=== PATIENT | male | born 1945 | race Caucasian/White ===

== ENCOUNTER 2020-03-01 17:01 | Inpatient (IN) | payer MEDICARE ==
[~2020-03-01] VITALS: Ht 177.8 cm; Wt 87.7 kg
[2020-03-01 18:27] LABS: BASO % 0.6 % (0.0-2.0); EOS # 0.1 (0.0-0.7); EOS % 1.7 % (0-4.0); GRAN # 2.6 (1.4-6.5); GRAN % 73.9 % (42.2-75.2); LYMPH # 0.4 (1.2-3.4); LYMPH % 11.6 % (20.0-51.0); MEAN CELL VOLUME 96 fl (80.0-100.0); MEAN CORPUSCULAR HGB CONC 31 g/dl (33.0-37.0); MEAN PLATELET VOLUME 10.2 fl (7.4-10.4); MONO # 0.4 (0.1-0.6); MONO % 11.6 % (1.7-9.3); PLATELET COUNT 162 K/mm3 (130-400); RED BLOOD COUNT 2.49 M/mm3 (4.20-5.60); REDCELL DISTRIBUTION WIDTH-CV 16.3 % (11.5-14.5)
[2020-03-01 18:31] LABS: HEMATOCRIT 23.8 % (42.0-52.0); HEMOGLOBIN 7.4 g/dl (13.5-18.0); MEAN CORPUSCULAR HEMOGLOBIN 30 pg (27.0-31.0)
[2020-03-01 18:35] LABS: INR 1.1 (0.8-3.0); PROTHROMBIN TIME 12.6 SECONDS (9.7-12.8)
[2020-03-01 18:40] LABS: ALBUMIN 3.3 gm/dL (3.5-5.0); BILIRUBIN,TOTAL 1.1 mg/dL (0.0-1.0); C-REACTIVE PROTEIN 4.2 mg/dL (0.0-0.9); CALCIUM 8.3 mg/dL (8.4-10.2); CREATININE, serum 3.72 (0.66-1.25); POTASSIUM 3.6 mmol/L (3.4-5.0); TOTAL PROTEIN 6.3 gm/dL (6.4-8.2)
[2020-03-01 18:49] LABS: TROPONIN-I 0.029 ng/mL (0.000-0.035)
[2020-03-01 21:04] LABS: IRON,SERUM 53 ug/dL (35-150)
[2020-03-01 21:13] LABS: TOTAL IRON BINDING CAPACITY 211 ug/dL (261-462)
[2020-03-01] MEDS ORDERED: NORVASC 10MG10 MG PO (21:16)
[2020-03-01] MEDS ORDERED: ZYLOPRIM 100MG100 MG PO (21:16)
[2020-03-01] MEDS ORDERED: ASPIRIN 81M81 MG/TA2 PO (21:16)
[2020-03-01] MEDS ORDERED: LIPITOR 40MG TA40 MG PO (21:17)
[2020-03-01] MEDS ORDERED: PLETAL 100MG T100 MG PO (21:18)
[2020-03-01] MEDS ORDERED: COREG 25MG25 MG/TAB PO (21:18)
[2020-03-01] MEDS ORDERED: COSOPT 2%-0.5%10 ML OU (21:19)
[2020-03-01] MEDS ORDERED: XALATAN EYE DROPS OD (21:20)
[2020-03-01] MEDS ORDERED: ONE-A-DAY ESSE1 EACH PO (21:21)
[2020-03-01] MEDS ORDERED: PREDNISONE 2.52.5 MG PO (21:22)
[2020-03-01] MEDS ORDERED: PROGRAF 0.5MG0.5 MG PO (21:23)
[2020-03-01] MEDS ORDERED: PROTONIX 40MG T40 MG PO (21:24)
[2020-03-01] MEDS ORDERED: FLOMAX 0.40.4 MG/CAP PO (21:24)
[2020-03-01 23:37] VITALS: BP 123/48; PULSE 55; PULSE 70; TEMP 97.4
[2020-03-02] VITALS (13 sets, daily range): BP systolic 116–130; BP diastolic 36–63; PULSE 53–84; TEMP 97.8–98.5
--- NOTE | 2020-03-02 00:50 | NUR ---
Admission B completed and documented. Pt resting in bed at this time. Pt alert and oriented x4. Denies pain. INT to right forearm CDI. Multiple skin issues documented. Generalized red/purple bruising to chest along with an abraision to his mid chest that is covered with a border foam which pt states was from his previous hospital stay in [facility]. Scattered tears/abraisions to left forearm. Blister to right forearm. Scattered bruising left flank and bilateral legs. Bilateral healing knee abraisions from a fall that pt states was about a week ago. Redness and edema to BLE. Fistula to left forearm with audible bruit and palpable thrill. Pt denies any other needs at this time. Call light within reach. Bed alarm on. Will conintue to monitor.
--- NOTE | 2020-03-02 06:14 | NUR ---
Pt rested well on CPAP. No complaints of pain. Denies any needs at this time. Call light within reach
[2020-03-02 08:19] LABS: BASO % 0.3 % (0.0-2.0); EOS # 0.1 (0.0-0.7); EOS % 1.6 % (0-4.0); GRAN # 2.8 (1.4-6.5); GRAN % 74.4 % (42.2-75.2); LYMPH # 0.5 (1.2-3.4); LYMPH % 13.7 % (20.0-51.0); MEAN CELL VOLUME 97 fl (80.0-100.0); MEAN CORPUSCULAR HGB CONC 31 g/dl (33.0-37.0); MEAN PLATELET VOLUME 10.8 fl (7.4-10.4); MONO # 0.4 (0.1-0.6); MONO % 9.7 % (1.7-9.3); PLATELET COUNT 151 K/mm3 (130-400); RED BLOOD COUNT 2.16 M/mm3 (4.20-5.60); REDCELL DISTRIBUTION WIDTH-CV 16.6 % (11.5-14.5)
[2020-03-02 08:21] LABS: HEMOGLOBIN 6.5 g/dl (13.5-18.0); MEAN CORPUSCULAR HEMOGLOBIN 30 pg (27.0-31.0)
[2020-03-02 08:28] LABS: ALBUMIN 2.8 gm/dL (3.5-5.0); CREATININE, serum 3.67 (0.66-1.25); PHOSPHOROUS 3.4 mg/dL (2.5-4.5); POTASSIUM 3.4 mmol/L (3.4-5.0)
--- NOTE | 2020-03-02 12:53 | NUR ---
SEE MEREOLEKSANDR FOR ALL MEDICATION ADMINISTRATION TIMES, INTRA AND POST SEDATION ASSESSMENTS
--- NOTE | 2020-03-02 12:55 | NUR ---
First visit from the equip maint eng. No needs right now.
--- NOTE | 2020-03-02 13:47 | NUR ---
Pt assessment completed and charted. medications administered per SEP. Pt laying in bed, denies pain, A&O. Pt has RFA INT IV that flushes w/o difficulty. LFA fistula, bruit and thrill present. Bilateral forearm bruising noted, per pt has been present for years. Bruising to mid chest and dressing in place from sternal rub in prior hospital stay elsewhere. BLE edema and redness noted, per pt isn't "as bad as it has been". pt on room air, breathing even and unlabored, denies SOB. No further needs expressed. pt signed consent for fistulogram. procedure completed, pt back to room , A&O. On post ops. Requesting snack, blanket and water, provided.
--- NOTE | 2020-03-02 16:21 | NUR ---
SW met with the patient to discuss discharge plan. The patient lives in [place] with his , Brooke (ph#[phone]). He reports independence with ADLs and has a rolaider and CPAP. The patient receives primary care from Dr. Rojo at the [facility] and from Dr. Moses in [place]. He receives his long-term medications through the mail from the [place] and anything short-term from [facility] in [place]. He reports no difficulties obtaining his meds. The patient does not have advanced directives in EMR, but he states that he does have a DPOA-HC completed and that his is his DPOA-HC. The patient plans to return home with his upon discharge. SW to continue to follow as needed.
--- NOTE | 2020-03-02 19:13 | NUR ---
Pt to have blood transfusion, 1 unit tonight and 1 unit tomorrow, verbal order from bedros placed. Verbal order for RIJ tunneled dialysis cath to be placed Saturday03/04/2020, consents signed. All questions answered. pt denies pain or needs throughout day. VSS. report given to LAZARO Beckford.
--- NOTE | 2020-03-02 19:41 | NUR ---
Report received from LAZARO Moreno. Pt resting in bed, denies needs at this time.
--- NOTE | 2020-03-02 21:25 | NUR ---
Assessment completed. Generalized bruising and skin tears noted over pt's entire body. Bilateral forearms bluish and scattered skin tears noted, pt reports this is baseline. BLE blue and bruised, 2+ pitting edema, pt reports this is also baseline. Middle upper chest covered with large bruise, dressing over skin tear, pt reports this occurred after sternal rub was done during a recent hospitalization. Various scattered bruising over pt's body, reports this is due to a recent fall prior to hospitalization. Fistula to left forearm with palpable thrill and audible bruit. INT to right forearm intact and flushes easily, drainage noted around dressing, dressing not changed due to high probability of skin tearing with removal. Will continue to monitor.
[2020-03-03] VITALS (13 sets, daily range): BP systolic 107–144; BP diastolic 24–57; PULSE 53–88; TEMP 98–98.6
--- NOTE | 2020-03-03 05:55 | NUR ---
Pt received 1 unit of PRBCs this shift. Tolerated well, vitals remained stable. Following blood transfusion, pt went to sleep. Wore own CPAP overnight.
[2020-03-03 07:42] LABS: BASO % 0.2 % (0.0-2.0); EOS % 0.6 % (0-4.0); GRAN # 3.6 (1.4-6.5); GRAN % 77.7 % (42.2-75.2); LYMPH # 0.5 (1.2-3.4); MEAN CELL VOLUME 95 fl (80.0-100.0); MEAN CORPUSCULAR HGB CONC 31 g/dl (33.0-37.0); MEAN PLATELET VOLUME 10.6 fl (7.4-10.4); MONO # 0.5 (0.1-0.6); MONO % 10.1 % (1.7-9.3); PLATELET COUNT 158 K/mm3 (130-400); RED BLOOD COUNT 2.55 M/mm3 (4.20-5.60); REDCELL DISTRIBUTION WIDTH-CV 17.3 % (11.5-14.5)
[2020-03-03 07:44] LABS: HEMATOCRIT 24.1 % (42.0-52.0); HEMOGLOBIN 7.5 g/dl (13.5-18.0); MEAN CORPUSCULAR HEMOGLOBIN 29 pg (27.0-31.0)
[2020-03-03 08:05] LABS: CALCIUM 8.2 mg/dL (8.4-10.2); CREATININE, serum 3.75 (0.66-1.25); PHOSPHOROUS 3.4 mg/dL (2.5-4.5); POTASSIUM 3.3 mmol/L (3.4-5.0)
--- NOTE | 2020-03-03 12:11 | NUR ---
BLOOD PRODUCT HAS BEEN STARTED ON THE PATIENT. PATIENT IS TOLERATING IT FINE AT THIS POINT. NO REACTIONS TO NOTE. INFUSION QAT 75 MLS
--- NOTE | 2020-03-03 15:30 | NUR ---
PATIENT BLOOD TRANSFUSION IS COMPLETED! PATIENT TOLERATED THE BLOOD TRANSFUSION WITHOUT ANY REACTIONS.
--- NOTE | 2020-03-03 18:25 | NUR ---
PATIENT GOT BLOOD TODAY AND TOLERATED IT VERY WELL. NO REACTIONS. , ABEL IS HERE TO VISIT THE PATIENT. PATIENT HAS BEEN ALERT AND ORIENTATED DURING THE DAY. PATIENT HAS MINIMAL URINE OUTPUT. IV IS NOW IN THE RIGHT UPPER ARM AND IS WORKING WELL. WILL REPORT OFF TO ANALYSIS REPORTING DEVELOPER.
--- NOTE | 2020-03-03 18:32 | NUR ---
Report received from LAZARO Estrella. Pt denies needs at this time.
--- NOTE | 2020-03-03 21:15 | NUR ---
Assessment completed. Scattered bruising and scabs over body, large bruise with skin tear to upper chest covered with dressing, bruising and abrasions to BUE and BLE. 2+ pitting edema noted to BLE with 1+ edema to LUE. Fistula to left forearm with palpable thrill and audible bruit, radial pulse strong. INT to right upper arm intact, flushes easily. Pt denies pain or other needs at this time.
[2020-03-04 03:51] VITALS: BP 104/38; PULSE 75; TEMP 98.3
--- NOTE | 2020-03-04 05:40 | NUR ---
Pt sleeping throughout shift, wearing CPAP from home. NPO since midnight. No complaints of pain or other concerns.
[2020-03-04 06:38] LABS: ALBUMIN 3.1 gm/dL (3.5-5.0); CALCIUM 8.1 mg/dL (8.4-10.2); CREATININE, serum 3.81 (0.66-1.25); PHOSPHOROUS 3.5 mg/dL (2.5-4.5); POTASSIUM 3.2 mmol/L (3.4-5.0)
[2020-03-04 06:40] LABS: BASO % 0.5 % (0.0-2.0); GRAN # 2.8 (1.4-6.5); GRAN % 73.8 % (42.2-75.2); LYMPH # 0.5 (1.2-3.4); LYMPH % 12.5 % (20.0-51.0); MEAN CELL VOLUME 93 fl (80.0-100.0); MEAN CORPUSCULAR HGB CONC 32 g/dl (33.0-37.0); MEAN PLATELET VOLUME 9.9 fl (7.4-10.4); MONO # 0.5 (0.1-0.6); MONO % 11.7 % (1.7-9.3); PLATELET COUNT 153 K/mm3 (130-400); REDCELL DISTRIBUTION WIDTH-CV 17.9 % (11.5-14.5)
[2020-03-04 06:43] LABS: HEMATOCRIT 25.2 % (42.0-52.0); HEMOGLOBIN 8.1 g/dl (13.5-18.0); MEAN CORPUSCULAR HEMOGLOBIN 30 pg (27.0-31.0)
[2020-03-04 08:48] VITALS: BP 135/39; PULSE 71; TEMP 98.7
--- NOTE | 2020-03-04 10:36 | NUR ---
PATIENT HAS LEFT FOR A PROCEDURE
--- NOTE | 2020-03-04 12:21 | NUR ---
PATIENT IS BACK TO THE FLOOR. PATIENT IS SLEEPY AT THIS TIME. RIGHT CHEST DIALYSIS CATHETER IS IN PLACE NOW WITH A WHITE BANDAGE OVER IT. VITALS ARE 18 RESPIRATORY RATE. 98% ON ROOM AIR. BLOOD PRESSURE IS 131/31. PULSE IS 57 BPM. PATIENT IS NOT COMPLAINING OF ANY PAIN AT THIS TIME.
[2020-03-04 12:23] VITALS: BP 131/31; PULSE 63
--- NOTE | 2020-03-04 16:52 | NUR ---
PATIENT IS DOWN AT DIALYSIS
--- NOTE | 2020-03-04 18:40 | NUR ---
PATIENT HAS HIS FISTULA LIGATED AND THEN A RIGHT CHEST DIALYSIS CATHETER PLACED. PATIENT IS CURRENTLY IN DIALYSIS. PATIENT REFUSED HIS SUPPER TIME INSULIN STATING THAT IT WILL MAKE HIM TOO LOW FOR LATER. PATIENT HAS HAD SOME DISCOMFORT WHERE THE DIALYSIS CATH WAS PLACED SO PRN PAIN MEDICATIONS WERE GIVEN. WILL REPORT OFF TO CLINICAL NURSING DIRECTOR.
[2020-03-04 20:00] VITALS: BP 142/51; PULSE 69; TEMP 97.8
--- NOTE | 2020-03-04 21:30 | NUR ---
Back from Dialysis- sandwich box given, states he is hungry-- dialysis cath to right chest intact, gauze dressing with very small spot of old drainage- no new bleeding noted, gauze to left forearm fistula dry and intact- good thrill/bruit . Will have Dialysis in the AM and then go home according to Dialysis nurse-
[2020-03-05] VITALS: BP 129/37; PULSE 56; TEMP 97.7
[2020-03-05 03:45] VITALS: BP 136/35; BP 136/65; PULSE 56; TEMP 98.1
[2020-03-05 06:37] LABS: BASO % 0.3 % (0.0-2.0); EOS # 0.1 (0.0-0.7); EOS % 1.6 % (0-4.0); GRAN # 2.7 (1.4-6.5); GRAN % 73.5 % (42.2-75.2); LYMPH # 0.4 (1.2-3.4); LYMPH % 11.5 % (20.0-51.0); MEAN CELL VOLUME 95 fl (80.0-100.0); MEAN CORPUSCULAR HGB CONC 31 g/dl (33.0-37.0); MEAN PLATELET VOLUME 10.5 fl (7.4-10.4); MONO # 0.5 (0.1-0.6); MONO % 12.6 % (1.7-9.3); PLATELET COUNT 163 K/mm3 (130-400); RED BLOOD COUNT 2.75 M/mm3 (4.20-5.60)
--- NOTE | 2020-03-05 06:40 | NUR ---
Quiet night- no requests, VSS, To Dialysis at this time
[2020-03-05 06:52] LABS: ALBUMIN 2.9 gm/dL (3.5-5.0); CALCIUM 8.2 mg/dL (8.4-10.2); CREATININE, serum 2.35 (0.66-1.25); PHOSPHOROUS 3.1 mg/dL (2.5-4.5); POTASSIUM 3.3 mmol/L (3.4-5.0)
[2020-03-05 07:04] LABS: HEMATOCRIT 26.1 % (42.0-52.0); HEMOGLOBIN 8.2 g/dl (13.5-18.0); MEAN CORPUSCULAR HEMOGLOBIN 30 pg (27.0-31.0)
--- NOTE | 2020-03-05 07:44 | NUR ---
PT AT DIAYLSIS.
--- NOTE | 2020-03-05 09:00 | NUR ---
PT IN DIALYSIS, VITALS REVIEWED, MEDICATIONS GIVEN, PT PLEASANT, AOX4, PT HAS WILLY DUSKY ARMS, PT HAS FISTULA WITH GAUZE AND PAPERTAPE, THRILL AND BRUIT PRESENT, PT HAS RUC DIALYSIS CATH WITH GAUZE AND TEGADERM OVER. PT DENIES PAIN/DISCOMFORT AT THIS TIME. ASSESSMENT PERFORMED. NO OTHER NEEDS AT THIS TIME.
[2020-03-05 09:30] VITALS: BP 146/51; PULSE 67; TEMP 98.5
[2020-03-05 11:57] VITALS: BP 127/25; PULSE 88; TEMP 97.7
--- NOTE | 2020-03-05 11:58 | NUR ---
PT EAGER FOR DISCHARGE, EDUCATED ON HAVING TO WAIT ON PHYSICIAN TO CHECK ON HIM AND PLACE DISCHARGE ORDERS.
[2020-03-05] MEDS ORDERED: COREG 6.256.25 MG/TA PO (12:31)
[2020-03-05] MEDS ORDERED: DEMADEX100 MG PO (12:38)
[2020-03-05] MEDS ORDERED: ZAROXOLYN 2.52.5 MG PO (12:42)
[2020-03-05] MEDS ORDERED: COUMADIN 1MG1 MG/TAB PO (12:46)
--- NOTE | 2020-03-05 13:23 | NUR ---
discharge education provided, bs taken, telemetry dc'd, coumadin dose given, pt currently getting dressed, refused help of nurse. will ring when ready to leave.
--- NOTE | 2020-03-05 13:55 | NUR ---
pt escorted out via wheelchair with pt belongings. no other needs at this time.
== END 2020-03-05 13:55 | disposition home or self-care (01) | DRG 252 ==
LOC: COL.ER 17:01 → MEDICAL 19:20
PROVIDERS: Emergency Medicine; Surgery; ADMIT Internal Medicine Nephrology
PROC: 5A1D70Z Performance of Urinary Filtration, Intermittent, Less than 6 Hours Per Day (ICD-10-PCS; 2020-03-04)
PROC: 05LF0ZZ Occlusion of Left Cephalic Vein, Open Approach (ICD-10-PCS; principal; 2020-03-04 10:30)
PROC: 02HV33Z Insertion of Infusion Device into Superior Vena Cava, Percutaneous Approach (ICD-10-PCS; 2020-03-04 10:30)
DX: T82.590A Other mechanical complication of surgically created arteriovenous fistula, initial encounter (principal); N18.6 End stage renal disease; T86.12 Kidney transplant failure; I12.0 Hypertensive chronic kidney disease with stage 5 chronic kidney disease or end stage renal disease; D63.1 Anemia in chronic kidney disease; E11.22 Type 2 diabetes mellitus with diabetic chronic kidney disease; I25.10 Atherosclerotic heart disease of native coronary artery without angina pectoris; Z99.2 Dependence on renal dialysis; I25.2 Old myocardial infarction; G47.33 Obstructive sleep apnea (adult) (pediatric); K21.9 Gastro-esophageal reflux disease without esophagitis; I48.91 Unspecified atrial fibrillation; N40.0 Benign prostatic hyperplasia without lower urinary tract symptoms; I27.20 Pulmonary hypertension, unspecified; M10.9 Gout, unspecified; Z95.1 Presence of aortocoronary bypass graft; D50.9 Iron deficiency anemia, unspecified; Z79.82 Long term (current) use of aspirin; Z79.51 Long term (current) use of inhaled steroids; E66.9 Obesity, unspecified
CPT/HCPCS: J0690; J1644; J1650; J1815; J1940; J2250; J2704; J2916; J3010; J7030; J7507; J7512; P9016; Q5105

== ENCOUNTER 2020-08-02 08:38 | Outpatient (CLI) | payer MEDICARE ==
[~2020-08-02] VITALS: Ht 177.8 cm; Wt 83.6 kg
[2020-08-02] VITALS (10 sets, daily range): BP systolic 118–149; BP diastolic 51–71; PULSE 52–65; TEMP 97.9
[~2020-08-02 08:38] MED LIST: ASPIRIN 81M81 MG/TA2 PO; COREG 25MG25 MG/TAB PO; COREG 6.256.25 MG/TA PO; COSOPT 2%-0.5%10 ML OU; COUMADIN 1MG1 MG/TAB PO; DEMADEX100 MG PO; FLOMAX 0.40.4 MG/CAP PO; LIPITOR 40MG TA40 MG PO; NORVASC 10MG10 MG PO; ONE-A-DAY ESSE1 EACH PO; PLETAL 100MG T100 MG PO; PREDNISONE 2.52.5 MG PO; PROGRAF 0.5MG0.5 MG PO; PROTONIX 40MG T40 MG PO; XALATAN EYE DROPS OD; ZAROXOLYN 2.52.5 MG PO; ZYLOPRIM 100MG100 MG PO
[2020-08-02] MEDS ORDERED: PHOS LO PO (10:03)
[2020-08-02] MEDS ORDERED: COREG 6.256.25 MG/TA PO (10:03)
[2020-08-02] MEDS ORDERED: PLETAL 100MG T100 MG PO (10:05)
[2020-08-02] MEDS ORDERED: GLUCOSAMINE & C1 CA2 PO (10:06)
[2020-08-02] MEDS ORDERED: PHARMASSURE L-500 MG PO (10:07)
[2020-08-02] MEDS ORDERED: ZAROXOLYN 2.52.5 MG PO (10:12)
[2020-08-02] MEDS ORDERED: PROGRAF 0.5MG0.5 MG PO (10:14)
[2020-08-02] MEDS ORDERED: NOVOLOG FLEX100 U/ML SQ (10:17)
[2020-08-02] MEDS ORDERED: LANTUS100 U/ML SQ (10:18)
[2020-08-02] MEDS ORDERED: COUMADIN 1MG1 MG/TAB PO (10:18)
[2020-08-02] MEDS ORDERED: DEMADEX100 MG PO (10:19)
[2020-08-02] MEDS ORDERED: TYLENOL PM EXTR1 TA1 PO (10:20)
--- NOTE | 2020-08-02 10:20 | NUR ---
SEE MERGE FOR ALL MEDICATION ADMINISTRATION TIMES, INTRA AND POST SEDATION ASSESSMENT
--- NOTE | 2020-08-02 13:35 | NUR ---
Discharge instructions given to pt.Pt verbalizes understanding.INT removed,catheter tip intact.pt escorted out via wheelchair by Katelynn Mays.
== END 2020-08-02 15:22 | disposition home or self-care (01) ==
LOC: COL.CAR 08:38
DX: T82.898A Other specified complication of vascular prosthetic devices, implants and grafts, initial encounter (principal); Z95.1 Presence of aortocoronary bypass graft; Z79.82 Long term (current) use of aspirin; Z79.01 Long term (current) use of anticoagulants
CPT/HCPCS: J0690; J1644; J2250; J3010

== ENCOUNTER 2022-03-27 11:14 | Outpatient (CLI) | payer MEDICARE ==
[~2022-03-27] VITALS: Ht 177.8 cm; Wt 80.7 kg
[2022-03-27] VITALS (9 sets, daily range): BP systolic 92–112; BP diastolic 48–64; PULSE 63–66; TEMP 99.2
[~2022-03-27 11:14] MED LIST changes: +COREG 3.123.125 MG/T PO; +GLUCOSAMINE & C1 CA2 PO; +LANTUS100 U/ML SQ; +NOVOLOG FLEX100 U/ML SQ; +PHARMASSURE L-500 MG PO; +PHOSLO667 MG PO; +TYLENOL PM EXTR1 TA1 PO
[2022-03-27] MEDS ORDERED: B-121000 MCG PO (12:44)
[2022-03-27] MEDS ORDERED: NESINA6.25 PO (12:45)
--- NOTE | 2022-03-27 14:54 | NUR ---
SEE MERGE FOR VITAL SIGNS, ASSESSMENTS, INTERVENTIONS AND MEDICATIONS GIVEN.
--- NOTE | 2022-03-27 16:16 | NUR ---
pt resting comfortably on cot after AV fistulogram. puncture to fistula covered with bandaid, no bleeding or swelling noted. cms intact distal. pt denies any needs, he is aware of 2 hour post procedure monitoring time. plans to eat after discharge. call light in reach.
--- NOTE | 2022-03-27 17:30 | NUR ---
Pt has had no issues with his fistula, no bleeding or swelling noted at punture site. Pt reports has had this procedure before and is comfortable with the discharge instructions to monitor for bleeding and infections. IV dc'd and pt escorted to exit via wheelchair.
== END 2022-03-27 18:26 | disposition home or self-care (01) ==
LOC: COL.CAR 11:14
DX: T82.838A Hemorrhage due to vascular prosthetic devices, implants and grafts, initial encounter (principal); N18.6 End stage renal disease
CPT/HCPCS: C1769; J3010